=== PATIENT | female | born 1955 | race Caucasian/White ===

== ENCOUNTER 2021-08-06 09:30 | Outpatient (CLI) | payer MEDICARE, OTHER ==
[2021-08-06 10:51] LABS: ALT (SGPT) 25 U/L (8-55); AST (SGOT) 18 U/L (5-34); Albumin 2.8 g/dL (3.4-4.8); Alkaline Phosphatase 89 U/L (40-110); Anion Gap 18 mmol/L (10-20); BUN (Urea Nitrogen) 20 mg/dL (9.8-20.1); Bilirubin, Direct 0.4 mg/dL (0.1-0.3); Bilirubin, Total 0.7 mg/dL (0.2-1.2); Calc. Creatinine Clearance 0 mL/min (70-130); Calcium 7.1 mg/dL (7.8-10.44); Carbon Dioxide 26 mmol/L (23-31); Cardiac Risk 1.5 (Less than 4.5); Chloride 100 mmol/L (98-107); Cholesterol 92 mg/dl (< 200 Desired); Glucose 127 mg/dL (80-115); HDL Cholesterol 63 mg/dL (>60 Neg Risk); LDL Cholesterol, Calculated 22 mg/dL; Protein, Total 5.1 g/dL (5.8-8.1); Sodium 141 mmol/L (136-145); Triglycerides 36 mg/dL (Less than 150)
[2021-08-06 17:09] LABS: Hemoglobin A1c 5.9 % (4.0-6.0)
[2021-08-06 17:30] LABS: Creatinine, Urine 34.88 mg/dL (47-110); Microalbumin Urine Less than 1.0 mg/dL (0.5-50.0)
== END 2021-08-06 09:31 | disposition home or self-care (01) ==
LOC: BURRAD 09:30
PROVIDERS: ATTEND Registered Nurse
DX: R06.02 Shortness of breath (principal); E10.65 Type 1 diabetes mellitus with hyperglycemia
CPT/HCPCS: 36415; 71046; 80048; 80061; 80076; 82043; 83036; 83880; 84681